=== PATIENT | female | born 1990 | race Two or more races ===

== ENCOUNTER 2021-06-23 22:41 | Emergency (ER) | payer MEDICAID ==
[~2021-06-23] VITALS: Ht 170.2 cm; Wt 97.0 kg
[2021-06-23 23:05] VITALS: BP 133/77
[2021-06-24] MEDS ORDERED: ACETAMINOPHEN 325MG TABLET PO ONE (00:15)
== END 2021-06-24 00:35 | disposition home or self-care (01) ==
LOC: ER 22:41
DX: S40.262A Insect bite (nonvenomous) of left shoulder, initial encounter (principal); F20.9 Schizophrenia, unspecified; W57.XXXA Bitten or stung by nonvenomous insect and other nonvenomous arthropods, initial encounter; Y93.9 Activity, unspecified; Y92.9 Unspecified place or not applicable
CPT/HCPCS: 99282